=== PATIENT | female | born 1965 | race Two or more races ===

== ENCOUNTER 2024-11-08 07:56 | Day surgery (SDC) | payer MEDICAID ==
[~2024-11-08] VITALS: Ht 160 cm; Wt 57.0 kg
[2024-11-08] VITALS (11 sets, daily range): BP systolic 123–155; BP diastolic 50–88; PULSE 81–92; RESP 13–18; TEMP 97.8; O2SAT 96–99
--- NOTE | 2024-11-08 08:39 | ELECTROCARDIOGRAPH REPORT ---
[facility] Test Date: 2024-11-08 Test Time: 08:37:42 Pat Name: APURVA MADDOX Department: [facility] Patient ID: [facility]-[id number] Room: Gender: F Special Effects Person: RICHARD : 1965 Requested By: MURALI ALEXANDER Order Number: [id number] Reading MD: Dr. RAFY Duncan Measurements Intervals [place] Rate: 82 P: 74 AL: 122 QRS: 5 QRSD: 99 T: 60 QT: 372 QTc: 435 Interpretive Statements Sinus rhythm Low voltage, precordial leads RSR' in V1 or V2, right VCD or RVH Electronically Signed On 11-08-2024 19:24:[address] RAFY Duncan Please click the below link to view image of tracing.
[2024-11-08 09:02] LABS: MEAN PLATELET VOLUME 9.0 FL (7.4-10.4); RED CELL DISTRIBUTION WIDTH 13.5 % (11.5-14.5)
[2024-11-08] MEDS: sodium bicarbonate 1meq/ml syr 150 ML in dextrose 5%-water 1,000 ML IV ONE (09:04)
[2024-11-08 09:08] LABS: INR 1.0 INR
[2024-11-08 09:15] LABS: CREATININE 0.87 MG/DL (0.40-0.90); TOTAL CARBON DIOXIDE 30.6 MMOL/L (24-32); eCRCL 59 ML/MIN; eGFR 67 ML/MIN
[2024-11-08] MEDS ORDERED: NPH,100V SQ (09:15)
[2024-11-08] MEDS ORDERED: BUPR300T53 PO (09:15)
[2024-11-08] MEDS ORDERED: INSU100V9 SQ (09:15)
[2024-11-08] MEDS ORDERED: ROSU10TA72 PO (09:15)
[2024-11-08] MEDS ORDERED: LIDOcaine 1% 30ml preserv. free vial ONE (10:43)
[2024-11-08] MEDS ORDERED: midazolam 1 mg/ML 2ml injection ONE (10:44)
[2024-11-08] MEDS ORDERED: fentaNYL/PF 50MCG/1 ML 2ML syringe ONE (10:44)
[2024-11-08] MEDS ORDERED: heparin 1,000unit/ml 10ml vial 10 ML ONE (10:44)
[2024-11-08] MEDS ORDERED: clopidogrel 300mg tablet ONE (12:17)
[2024-11-08] MEDS ORDERED: CLOP75TA33 PO (13:01)
--- NOTE | 2024-11-08 13:27 | CARDIOLOGY REPORT ---
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 Lower extremity ultrasonography demonstrates at least a moderate stenosis in the proximal right SFA. PROCEDURES PERFORMED: * Left common femoral arterial access. * Ipsilateral iliac, femoral, popliteal, and infrapopliteal arteriographic runoff. * Contralateral iliac, femoral, popliteal, and infrapopliteal runoff. * Placement of a crossover catheter in the right/contralateral common femoral artery. * Directional atherectomy (HawkOne), right/contralateral proximal superficial femoral artery. * Right/contralateral proximal femoral drug-eluting balloon angioplasty. * Percutaneous arteriotomy closure (Perclose). * 60 minutes conscious sedation supervision. DESCRIPTION OF PROCEDURE: The patient was sedated with fentanyl and Versed. She was then prepared and draped in the usual manner. The left inguinal area was infiltrated with 1% lidocaine. Using then a micropuncture set and a Seldinger technique, a 7-Trinidadian sheath was placed in the common femoral artery. 3000 units of heparin were given. Using this sheath and firm hand injections, arteriography of the left/ipsilateral iliac, femoral popliteal, and infrapopliteal vessels was performed. A 6-Trinidadian BRENDAN catheter was placed at the iliac bifurcation with the tip directed into the contralateral common iliac. A glided advantage wire was then passed through the BRENDAN down the iliac system and well into the superficial femoral artery. The BRENDAN catheter and short sheath were removed and a 45-cm destination sheath was passed over the wire and positioned in the right/contralateral common femoral artery. An 80% stenosis in the proximal right/contralateral superficial femoral artery was identified. A 0.014, 300 cm guidewire was passed down through the right vascular system with a tip position distally. The 0.035 glided advantage wire was removed and using a PredPolkOne LS atherectomy catheter, 4 passes were made directed at the atheromatous lesion, which was predominantly affecting the medial side of the vessel. The HawkOne was removed and a substantial amount of atheroma was then removed from the collecting container of the atherectomy catheter. Arteriography demonstrated a marked improvement in the lumen size. The residual stenosis was managed with a 3-minute inflation of a 5 x 60 mm Medtronic drug-eluting balloon inflated to 14 atmospheres. Additional arteriography demonstrated no residual stenosis and brisk runoff distally. Catheters were removed and the arterial puncture site was successfully perclosed. RESULTS: 1. There was no obstructive disease in any location within the left iliac, femoral, popliteal, and infrapopliteal vessels. 2. No obstructive disease in the right iliac system, the common femoral artery, and in the right profunda femoris system. 3. There was an 80% stenosis proximally located within the right superficial femoral artery, but the remainder of the SFA as well as the popliteal and infrapopliteal vessels were unobstructed. INTERVENTION: Following shave atherectomy (Terri) and drug-eluting balloon angioplasty, there was no significant residual stenosis and very brisk runoff distally. PLAN: Ongoing medical therapy. MURALI ALEXANDER DO TID: [id number] RECEIPT: [id number] NISSA/NICOLAS
== END 2024-11-08 16:20 | disposition home or self-care (01) ==
LOC: SSTAY O 07:56
PROVIDERS: ATTEND Internal Medicine Cardiovascular Disease
DX: E10.51 Type 1 diabetes mellitus with diabetic peripheral angiopathy without gangrene (principal); F17.210 Nicotine dependence, cigarettes, uncomplicated; Z79.899 Other long term (current) drug therapy; Z88.2 Allergy status to sulfonamides; Z83.3 Family history of diabetes mellitus
CPT/HCPCS: 36246; 37225; 80053; 85025; 85610; 93005; 99152; 99153; A6258; C1760; J1171; J1644; J2003; J2250; J3010; J3490; J7030; J7070; Q0163; Q9967; 36140; 36245; 37224; C1714; C1769; C1894; C2623